=== PATIENT | male | born 1930 | race Caucasian/White ===

== ENCOUNTER → 2016-05-07 | Outpatient (CLI) | payer MEDICARE, BC | END | disposition home or self-care (01) | LOC: RAD.S 14:12 | DX: M79.602 Pain in left arm (principal); M79.89 Other specified soft tissue disorders; C33 Malignant neoplasm of trachea; C32.9 Malignant neoplasm of larynx, unspecified; C34.80 Malignant neoplasm of overlapping sites of unspecified bronchus and lung; I10 Essential (primary) hypertension ==

== ENCOUNTER → 2016-05-16 | Outpatient (CLI) | payer MEDICARE, BC | END | disposition home or self-care (01) | LOC: RAD.S 12:47 | DX: M79.89 Other specified soft tissue disorders (principal); C34.80 Malignant neoplasm of overlapping sites of unspecified bronchus and lung; C32.9 Malignant neoplasm of larynx, unspecified; C33 Malignant neoplasm of trachea; I10 Essential (primary) hypertension ==

== ENCOUNTER 2016-07-16 05:53 | Emergency (ER) | payer MEDICARE, BC ==
--- NOTE | 2016-07-21 17:50 | ER ---
ADMIT: 07/16/2016 RM/LOC: ER [facility] MR#: [id number] [address] [address] JENNI CHEEK [address] [facility] [address] [place] [address] Emergency Room Report SEX: M AGE: 85 : 1930 DATE: 07/16/2016 ADDENDUM: An 85-year-old white male coming in with shortness of breath and cough. 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 He is scheduled for surgery in [place] to see if they can help that trach area. He became more short of breath and coughing today. DuoNeb, steroids and that seemed to help him. I spoke with [facility] and Dr. Purcell's respiratory care assistant Charla. As soon as a bed opens up, we will transport him up there. CONDITION ON DISCHARGE: Serious but stable. Chidi Cardona MD/ omid JOB #: [id number] CC: Zak Sood MD, Attending Physician Todd Limon MD, Family Physician
== END 2016-07-16 11:57 | disposition home or self-care (01) ==
LOC: ER 05:53
DX: J44.9 Chronic obstructive pulmonary disease, unspecified (principal); C34.90 Malignant neoplasm of unspecified part of unspecified bronchus or lung; E78.5 Hyperlipidemia, unspecified; I25.10 Atherosclerotic heart disease of native coronary artery without angina pectoris; Z85.038 Personal history of other malignant neoplasm of large intestine; Z90.49 Acquired absence of other specified parts of digestive tract

== ENCOUNTER 2016-07-20 11:50 | Inpatient (IN) | payer MEDICARE, BC ==
[~2016-07-20] VITALS: Ht 171.4 cm; Wt 96.9 kg
--- NOTE | 2016-07-24 07:44 | ER ---
ADMIT: 07/20/2016 RM/LOC: 316 [facility] MR#: [id number] [address] [place], [place] [address] [place] CHEEK [address] [place] [address] Emergency Room Report SEX: M AGE: 85 : 1930 DATE: 07/20/2016 CHIEF COMPLAINT: Short of breath. HISTORY OF PRESENT ILLNESS: The patient is an 85-year-old gentleman with history of numerous cancers including lymphoma, colon cancer, lung cancer, and most recently tracheal cancer. He has had radiation chemo in the past and from my understanding, has recently not tolerated his chemotherapy regimens. In the past week, he had come to the ER in [place] within 24 hours, was actually transferred down to [facility] in [place] while there was some concern of erosion of a vascular tumor into his mid distal right trachea and subsequently, he had a flexible bronchoscopy done and a tracheal stent placed. He was discharged on on 2 L of oxygen and apparently, he was doing fairly well. The patient's daughter is the primary historian at this time and states that this morning, he has become significantly more short of breath, less alert, and had very wet coarse breath sounds. EMS was called and he was brought into our facility from [place] for evaluation. After a long discussion with the and daughter, it is confirmed that he is a DNR/DNI. REVIEW OF SYSTEMS: The patient has denied chest pain or abdominal pain, and has not been having nausea, vomiting, or bowel or bladder changes that family is aware of. They do not report any focal weakness that they have noticed. 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 PAST SURGICAL HISTORY: Abdominal hernia repair, bowel resection, tracheal stent placement. MEDICATIONS: See nurse's note. ALLERGIES: NONE. SOCIAL HISTORY: The patient does not drink, use drugs, and does have history of smoking, but quit years ago. PHYSICAL EXAMINATION: GENERAL: The patient is sleepy, but arousable to voice. HEENT: Head is atraumatic. Airway is patent. Posterior oropharynx is unremarkable. HEART: Borderline tachycardic, but regular rhythm. LUNGS: Show very coarse rhonchorous breath sounds with some decreased breath sounds in the bases. ABDOMEN: Soft, nontender, and nondistended. SKIN: Warm and dry. EXTREMITIES: He does have 1+ pedal edema bilaterally. No skin lesions or rashes, and has good pulses in all 4 extremities. LABORATORY DATA: Chest x-ray shows right-sided pneumonia in the base with ADMIT: 07/20/2016 RM/LOC: 316 [facility] MR#: [id number] [address] [address] JEN[place] CHEEK [address] [place] [address] Emergency Room Report SEX: M AGE: 85 : 1930 what appears to be some bilateral edema. White count of 22.3, hemoglobin 10.4, ANC of 20.1. Lactic acid 1.6. Sodium 134, potassium 3.5, glucose 135, creatinine 2.1. CK 22, CK-MB 0.7, troponin 0.076. INR 1.1. ABG on 6 L nasal cannula shows a pH of 7.32, pCO2 of 63.4, and PO2 of 57. EKG shows sinus tachycardia, interventricular conduction delay, no signs of ST-elevation or acute MT. EMERGENCY DEPARTMENT COURSE: We did go ahead and do our sepsis protocol on the patient. Due to his respiratory distress and coarse breath sounds, when he arrived, we went ahead and got him set up on BiPAP 10/5 shortly after his blood gas was obtained. He was given 40 of Lasix IV, and given Tylenol 1 g IV. He did have decreased blood pressures while in the Emergency Department after Lasix was given, and I think part of that could have been he was more comfortable with his breathing also. Due to his low blood pressures, we did initiate 30 mL/kg of fluid resuscitation, and he was also given some Ativan to help with his irritation of being on BiPAP. Antibiotics were ordered and given in the Emergency Department. I spoke to Dr. Limon, who is the patient's primary care physician, and he will be admitted to the ICU for further treatment. The patient is admitted in critical care, and one and half hours of critical care time was spent on this patient. DIAGNOSES: 1. Hypoxemia. 2. Shortness of breath. 3. Pneumonia. 4. Pulmonary edema. 5. Sepsis. 6. Tracheal cancer. Cassius Brink MD/ omid JOB #: [id number] CC: Todd Limon MD, Attending Physician Todd Limon MD, Family Physician
--- NOTE | 2016-07-24 08:09 | HP ---
ADMIT: 07/20/2016 RM/LOC: 416 [facility] MR#: [id number] [address] [facility] [address] [place] [id number] [address] [place] [address] History and Physical SEX: M AGE: 85 : 1930 DATE OF SERVICE: CHIEF COMPLAINT: Increasing shortness of breath and decreased altered mental status. HISTORY OF PRESENT ILLNESS: The patient is an 85-year-old gentleman with an extensive past medical history of multiple cancers. 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 He has not been tolerating chemotherapy well. The patient also has a past medical history of coronary artery disease and hyperlipidemia. Thepatient was actually seen in our hospital earlier this week for increased shortness of breath. He was admitted and then transferred to [facility] for tracheal stent placement on 07/17/2016. The patient was then transferred back to his home in [place], [place], where he was stable for approximately a day or two and then he started having increased shortness of breath early this morning and decreased alertness. The patient was hypoxic to the 80s and was diagnosed with a right lower lobe pneumonia and the patient was placed on BiPAP, which did improve his oxygen saturation. He is now on 15 L on BiPAP and is saturating in the mid 90s with occasional drops into the 80s. Due to the patient's extensive history, Dr. Limon and I talked with him and his family and decision was made to go comfort cares at this time. Patient said he did not want to do this anymore. Moreover, we discussed that even if he would get through this current pneumonia episode, there was a high probability of developing recurrent pneumonias or other illnesses due to his extensive history and difficulty with his tracheal cancer. The patient is a DNR/DNI. The patient was started on comfort cares. Unnecessary medications were stopped. Medications were added to keep the patient comfortable. Family was supportive of this decision as well. PHYSICAL EXAMINATION: VITAL SIGNS: At time of admission were stable. Blood pressure 103/40, SpO2 of 97%, heart rate of 95 to 96 with multiple PVCs. The patient is on BiPAP. He is not able to tell us whole history, so lot of the history was taken from his family and knowledge from Dr. Limon, as he had been his doctor for multiple years. Gen: acute distress, SOB, altered mental status Heart: tachycardic, but regular rhythym Lungs: coarse BS bilaterally, increased respiratory effort Skin: cool,dry PLAN: Plan is to admit the patient for comfort cares. We will keep the patient in comfort, and we will not treat the pneumonia aggressively. Florence Rivas MD Resident / Todd Limon MD / pauliel JOB #: [id number] CC: Todd Limon, Attending Physician Todd Limon, Family Physician
--- NOTE | 2016-07-30 11:51 | DS ---
ADMIT: 07/20/2016 RM/LOC: 416 [facility] MR#: [id number] [address] [address] [place] [address] [place] [address] General Discharge Summary SEX: M AGE: 85 : 1930 ADMISSION DATE: 07/20/2016 DISCHARGE DATE: 07/21/2016 CHIEF COMPLAINT: Increasing shortness of breath and decreased altered mental status. FINAL DIAGNOSES: 1. Right lower lobe pneumonia. 2. 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 3. Recent tracheal stent placement. 4. Altered mental status. 5. Hypoxia. HOSPITAL COURSE: The patient again presented with decreased altered mental status and shortness of breath. The patient was found to be hypoxic in the 80% when he arrived to the ER. He was diagnosed with a right lower lobe pneumonia. He was placed on BiPAP, which did improve his oxygen saturation; however, the patient was struggling to keep his O2 saturations elevated. He is on 15 L of BiPAP. He is a DNR/DNI, so he did not want to be intubated. Due to the patient's extensive history of repetitive cancers as well as his current laryngeal cancer with metastasis and not tolerating chemotherapy, the patient decided that he wanted to be made comfort cares. Family was on board as well and supportive of this decision. The patient was made comfort cares. Anesthetic medications were stopped. Medications were started to keep the patient comfortable. The patient the following morning on the date of 07/21/2016. Florence Rivas MD Resident / Todd Limon MD / omid JOB #: [id number] CC: Todd Limon MD, Attending Physician Todd Limon MD, Family Physician
== END 2016-07-21 08:20 | disposition expired | DRG 871 ==
LOC: ER 11:50 → 3ICU 14:20 → 4PCU 23:34
PROVIDERS: ADMIT Family Medicine
DX: A41.9 Sepsis, unspecified organism (principal); J18.9 Pneumonia, unspecified organism; N17.9 Acute kidney failure, unspecified; C78.01 Secondary malignant neoplasm of right lung; C78.02 Secondary malignant neoplasm of left lung; C32.9 Malignant neoplasm of larynx, unspecified; C85.90 Non-Hodgkin lymphoma, unspecified, unspecified site; Z51.5 Encounter for palliative care; R65.20 Severe sepsis without septic shock; I25.10 Atherosclerotic heart disease of native coronary artery without angina pectoris; E78.5 Hyperlipidemia, unspecified; R09.02 Hypoxemia; Z85.038 Personal history of other malignant neoplasm of large intestine; Z66 Do not resuscitate; Z87.891 Personal history of nicotine dependence; Z96.641 Presence of right artificial hip joint